=== PATIENT | female | born 1975 | race Caucasian/White ===

== ENCOUNTER 2017-11-04 13:11 | Observation (INO) | payer SELFPAY ==
[2017-11-04] MEDS ORDERED: NA CHLORIDE 0.9% 1,000 ML ONE (14:43)
[2017-11-04] MEDS ORDERED: ONDANSETRON 4 MG/2 ML VIAL ONE (14:43)
[2017-11-04] MEDS ORDERED: MORPHINE 4 MG/ML SYR ONE (14:43)
[2017-11-04 14:52] LABS: Absolute Monocytes 0.4 K/uL (0.1-1.3); Absolute Neutrophil 9.3 K/uL (1.8-8.0); Basophils % 0.3 % (0-1.3); Eosinophils % 0.8 % (0-4.4); Hematocrit 40.7 % (36.0-45.0); MCV 82.7 fL (80-100); RBC Red Blood Cell Count 4.92 M/uL (3.86-4.86)
[2017-11-04 15:03] LABS: Bicarbonate 27 mEq/L (21-31); Glucose Level 104 mg/dL (65-120); Lipase 19 U/L (22-51); Potassium 3.8 mEq/L (3.6-5.0); Sodium Level 139 mEq/L (135-145)
[2017-11-04 15:09] LABS: ALT/SGPT 14 IU/L (10-60); AST/SGOT 18 IU/L (10-42); Alkaline Phosphatase 58 IU/L (42-121); Amylase Level 43 U/L (28-100); BUN Blood Urea Nitrogen 8 mg/dL (6-20); Bilirubin Direct 0.1 mg/dL (0-0.2); Bilirubin Total 0.6 mg/dL (0.3-1.2); Protein, Total 7.7 g/dL (6.0-8.3)
[2017-11-04 15:29] LABS: Blood Morphology Comment NOT SEEN (NOT SEEN); Platelet Estimate ADEQ; Urine White Blood Cell Casts OK
--- NOTE | 2017-11-04 15:45 | RAD REPORT ---
EXAM DESCRIPTION: US - Abdomen Exam Limited - 11/04/2017 3:37 pm CLINICAL HISTORY: Abdominal pain. COMPARISON: None. FINDINGS: The gallbladder demonstrates multiple shadowing gallstones. Gallbladder wall is upper limi t of normal measuring 4-5 mm. The common bile duct is normal measuring 6 mm. The liver demonstrates no findings of intrahepatic biliary dilatation. IMPRESSION: Cholelithiasis is noted with upper limit of normal gallbladder wall measuring 4-5 mm. A cute cholecystitis is low likelihood, however correlation with HIDA scan may be considered if clinica l symptomology persists or progresses.
[2017-11-04 15:54] LABS: Urine Bacteria <20 /HPF (<20); Urine Culture Reflex Order NOT NEEDED
[2017-11-04 16:22] LABS: Urine Blood 2+ (NEG); Urine Glucose NEGATIVE (NEG); Urine Protein 2+ (NEG); Urine Specific Gravity 1.025 (1.005-1.030)
--- NOTE | 2017-11-04 16:26 | EDPHYS ---
Physician Documentation [facility] Name: Jennifer Rodarte Age: 42 yrs Sex: Female : 1975 Arrival Date: 11/04/2017 Time: 13:13 Bed 19 Private MD: ED Physician Bradley Shipley HPI: 11/04 14:23 This 42 yrs old Female presents to ER via Ambulatory with complaints of rh1 Abdominal Pain, Vomiting. 14:23 The patient presents with abdominal pain in the epigastric area, in the upper abdomen. rh1 Onset: The symptoms/episode began/occurred this morning, at 04:00. The symptoms do not radiate. Associated signs and symptoms: Pertinent positives: nausea, vomiting, Pertinent negatives: chest pain, diarrhea, dysuria, fever, shortness of breath. The symptoms are described as constant, sharp. Modifying factors: The symptoms are alleviated by nothing, the symptoms are aggravated by nothing. Severity of pain: At its worst the pain was moderate in the emergency department the pain is unchanged. The patient has not experienced similar symptoms in the past. The patient has not recently seen a physician. Pt. reports began with N/V this am at 0400, with upper abdominal pain. Reports emesis continued throughout the morning, has not been able to keep anything down. She had pizza last night for dinner. Denies any sick contacts, no fever/chills, diarrhea, chest pain, SOB.. 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 - Social history:: Smoking status: Patient/guardian denies using tobacco. ROS: 14:23 Constitutional: Negative for fever, chills rh1 14:23 Cardiovascular: Negative for chest pain, palpitations. 14:23 Respiratory: Negative for cough, shortness of breath, wheezing. 14:23 Abdomen/GI: Positive for abdominal pain, nausea and vomiting, Negative for diarrhea, constipation. 14:23 Back: Negative for decreased range of motion, pain at rest, pain with movement, radiated pain. 14:23 : Negative for urinary symptoms, small amounts. 14:23 Neuro: Negative for altered mental status, dizziness. 14:23 All other systems are negative. Exam: 14:23 Constitutional: This is a well developed, well nourished patient who is awake, alert, rh1 and in no acute distress. Head/Face: Normocephalic, atraumatic. Neck: Trachea midline, and no cervical lymphadenopathy. Supple, full range of motion without nuchal rigidity. No Meningismus. Chest/axilla: Normal chest wall appearance and motion. Nontender with no deformity. No lesions are appreciated. Cardiovascular: Regular rate and rhythm with a normal S1 and S2. No gallops, murmurs, or rubs. No JVD. No pulse deficits. Respiratory: Lungs have equal breath sounds bilaterally, clear to auscultation. No rales, rhonchi or wheezes noted. No increased work of breathing. 14:23 Back: No spinal tenderness. No costovertebral tenderness. Full range of motion. Skin: Warm, dry with normal turgor. Normal color with no rashes, no lesions, and no evidence of cellulitis. 14:23 Abdomen/GI: Inspection: abdomen appears normal, bruising, is not seen, distension, is not seen, Bowel sounds: normal, in all quadrants, active, all quadrants, Palpation: soft, in all quadrants, moderate abdominal tenderness, in the epigastric area and right upper quadrant, rebound tenderness, is not appreciated, involuntary guarding, is not appreciated, Indicators: McBurney's point is not tender, Coffman's sign is positive, Rovsing's sign is negative, Liver: no appreciated palpable abnormalities. 14:23 Neuro: Orientation: is normal, to person, place \T\ time. Mentation: is normal, lucid, able to follow commands, Motor: is normal, moves all fours, Sensation: is normal, no obvious gross deficits, Gait: is steady, at a normal pace, without difficulty. Vital Signs: 13:26 BP 129 / 94; Pulse 78; Resp 17; Temp 98.7; Pulse Ox 97% on R/A; Weight 99.79 kg; Height aj 5 ft. 9 in. (175.26 cm); Pain 4/10; 15:00 BP 124 / 82; Pulse 65; Resp 18; Pulse Ox 100% on R/A; rb1 16:00 BP 129 / 105; Pulse 69; Resp 17; Pulse Ox 100% ; rb1 17:00 BP 128 / 72; Pulse 57; Resp 17; Pulse Ox 98% on R/A; rb1 18:00 BP 120 / 75; Pulse 61; Resp 16; Pulse Ox 99% ; rb1 13:26 Body Mass Index 32.49 (99.79 kg, 175.26 cm) aj MDM: 14:[address] [facility] 16:08 Physician consultation: Leonardo Zheng MD was called at 16:08, was contacted at 16:09, [facility] regarding consult, patient's condition. 16:22 ED course: pt. vomiting water after po challenge. rh1 16:22 Data reviewed: vital signs, nurses notes, lab test result(s), radiologic studies, [facility] ultrasound, and as a result, I will admit patient. Data interpreted: Pulse oximetry: on room air is 97 %. Interpretation: normal. Counseling: I had a detailed discussion with the patient and/or guardian regarding: the historical points, exam findings, and any diagnostic results supporting the discharge/admit diagnosis, lab results, radiology results, the need for further work-up and treatment in the hospital. 16:30 Physician consultation: DR Mitchell was called at 16:31, was contacted at 16:31, regarding [facility] admission, and will see patient. 11/04 14:27 Order name: Amylase, Serum; Complete Time: 15:11 [facility] 11/04 14:27 Order name: Basic Metabolic Panel; Complete Time: 15:11 [facility] 11/04 14:27 Order name: CBC with Diff; Complete Time: 15:35 [facility] 11/04 14:27 Order name: Creatinine for Radiology; Complete Time: 15:04 11/04 14:27 Order name: Hepatic Function; Complete Time: 15:11 [facility] 11/04 14:27 Order name: Lipase; Complete Time: 15:11 [facility] 11/04 14:27 Order name: Urine Microscopic Only; Complete Time: 15:55 [facility] 11/04 14:27 Order name: US Abdomen Limited; Complete Time: 15:46 [facility] 11/04 14:54 Order name: CBC Smear Scan; Complete Time: 15:35 EDMS 11/04 15:03 Order name: Urine Dipstick--Ancillary (enter results); Complete Time: 16:26 eb 11/04 15:03 Order name: Urine --Ancillary (enter results); Complete Time: 16:26 11/04 14:27 Order name: Urine Test (obtain specimen); Complete Time: 14:55 1 11/04 14:27 Order name: IV Saline Lock; Complete Time: 14:38 1 11/04 14:27 Order name: Labs collected and sent; Complete Time: 14:38 1 11/04 14:27 Order name: Urine Dipstick-Ancillary (obtain specimen); Complete Time: 14:55 1 11/04 15:56 Order name: PO challenge; Complete Time: 16:24 rh1 Administered Medications: 14:53 Drug: Zofran 4 mg Route: IVP; Site: left antecubital; rb1 14:55 Drug: morphine 4 mg Route: IVP; Site: left antecubital; rb1 15:15 Follow up: Response: No adverse reaction; Pain is decreased rb1 15:06 Drug: NS 0.9% 1000 ml Route: IV; Rate: 1 bolus; Site: left antecubital; rb1 16:12 Follow up: IV Status: Completed infusion rb1 15:08 Not Given (provider changed order): morphine 4 mg IM once rb1 16:35 Drug: Phenergan 12.5 mg Route: IVP; Site: left antecubital; rb1 16:40 Drug: Mefoxin 1 grams Route: IVPB; Infused Over: 30 mins; Site: left antecubital; rb1 16:45 Drug: Flagyl 500 mg Volume: 100 ml; Route: IVPB; Rate: 200 ml/hr; Infused Over: 30 rb1 mins; Site: left antecubital; Disposition: 18:47 Co-signature as Attending Physician, Bradley Shipley MD. rn Disposition: 11/04/17 16:25 Hospitalization ordered by Ash Harvey for Observation. Preliminary diagnosis are Cholelithiasis, Nausea and vomiting. - Bed requested for Telemetry/MedSurg (observation). - Status is Observation. rb1 - Condition is Stable. - Problem is new. - Symptoms are unchanged. UTI on Admission? No Signatures: Dispatcher [employer] EDJada Yu RN RN aj Nieto, Roman, MD MD rn Jones, Rachel, SHANK TAPPER SHANK TAPPER 1 Carline Tran RN RN rb1 Isis Garcia Corrections: (The following items were deleted from the chart) 16:28 16:25 Hospitalization Ordered by [facility] DO for Observation. Preliminary eb diagnosis is Cholelithiasis; Nausea and vomiting. Bed requested for Telemetry/MedSurg (observation). Status is Observation. Condition is Stable. Problem is new. Symptoms are unchanged. UTI on Admission? No. rh1 17:14 16:28 11/04/2017 16:25 Hospitalization Ordered by [facility] for Observation. eb Preliminary diagnosis is Cholelithiasis; Nausea and vomiting. Bed requested for Telemetry/MedSurg (observation). Status is Observation. Condition is Stable. Problem is new. Symptoms are unchanged. UTI on Admission? No. eb 17:35 17:14 11/04/2017 16:25 Hospitalization Ordered by [facility] for Observation. eb Preliminary diagnosis is Cholelithiasis; Nausea and vomiting. Bed requested for Telemetry/MedSurg (observation). Status is Observation. Condition is Stable. Problem is new. Symptoms are unchanged. UTI on Admission? No. eb 18:44 17:35 11/04/2017 16:25 Hospitalization Ordered by [facility] for Observation. rb1 Preliminary diagnosis is Cholelithiasis; Nausea and vomiting. Bed requested for Telemetry/MedSurg (observation). Status is Observation. Condition is Stable. Problem is new. Symptoms are unchanged. UTI on Admission? No. eb
--- NOTE | 2017-11-04 16:26 | ER ---
Nurse's Notes [facility] Name: Jennifer Rodarte Age: 42 yrs Sex: Female : 1975 Arrival Date: 11/04/2017 Time: 13:13 Bed 19 Private MD: Diagnosis: Cholelithiasis;Nausea and vomiting Presentation: 11/04 13:25 Presenting complaint: Patient states: RUQ abdominal pain and nausea since 0400 this AM. aj Patient reports eating pizza last night. Transition of care: patient was not received from another setting of care. Onset of symptoms was November 04, 2017. Initial Sepsis Screen: Does the patient meet any 2 criteria? No. Patient's initial sepsis screen is negative. Does the patient have a suspected source of infection? No. Patient's initial sepsis screen is negative. Care prior to arrival: None. 13:25 Method Of Arrival: Ambulatory aj 13:25 Acuity: MIHIR 3 aj Triage Assessment: 13:26 General: Appears in no apparent distress. uncomfortable, Behavior is calm, cooperative, aj appropriate for age. Pain: Complains of pain in right upper quadrant. Neuro: Level of Consciousness is awake, alert, obeys commands, Oriented to person, place, time, situation, Appropriate for age. Respiratory: Airway is patent Trachea midline Respiratory effort is even, unlabored, Respiratory pattern is regular, symmetrical. GI: Reports upper abdominal pain, nausea, vomiting. Derm: Skin is intact, is healthy with good turgor, Skin is pink, warm \T\ dry. normal. 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 - Social history:: Smoking status: Patient/guardian denies using tobacco. Screenin:25 Abuse screen: Denies threats or abuse. Nutritional screening: No deficits noted. rb1 Tuberculosis screening: No symptoms or risk factors identified. Fall Risk None identified. Assessment: 14:25 General: Appears uncomfortable, Behavior is calm, cooperative, Reports fever for. Pain: rb1 Complains of pain in epigastric area and right upper quadrant Pain currently is 9 out of 10 on a pain scale. Neuro: Level of Consciousness is awake, alert, obeys commands, Oriented to person, place, time, situation. Cardiovascular: Capillary refill < 3 seconds is brisk in bilateral fingers. Respiratory: Airway is patent Respiratory effort is even, unlabored, Respiratory pattern is regular, symmetrical. GI: Bowel sounds present X 4 quads. Abd is soft Abdomen is tender to palpation in epigastric area and right upper quadrant. : No signs and/or symptoms were reported regarding the genitourinary system. Derm: Skin is pink, warm \T\ dry. 15:18 Reassessment: Patient appears in no apparent distress at this time. No changes from rb1 previously documented assessment. 16:15 Reassessment: Patient appears in no apparent distress at this time. Patient and/or rb1 family updated on plan of care and expected duration. Pain level reassessed. Patient is alert, oriented x 3, equal unlabored respirations, skin warm/dry/pink. Family at bedside. 16:45 Reassessment: Dr. Mitchell is at bedside. rb1 17:15 Reassessment: Patient appears in no apparent distress at this time. No changes from rb1 previously documented assessment. 18:00 Reassessment: Patient appears in no apparent distress at this time. Patient and/or rb1 family updated on plan of care and expected duration. Pain level reassessed. Patient is alert, oriented x 3, equal unlabored respirations, skin warm/dry/pink. at bedside. 18:10 Reassessment: Called report to Jyothi Du RN. Information from the SBAR was given. All rb1 questions asked and answered. Vital Signs: 13:26 BP 129 / 94; Pulse 78; Resp 17; Temp 98.7; Pulse Ox 97% on R/A; Weight 99.79 kg; Height aj 5 ft. 9 in. (175.26 cm); Pain 4/10; 15:00 BP 124 / 82; Pulse 65; Resp 18; Pulse Ox 100% on R/A; rb1 16:00 BP 129 / 105; Pulse 69; Resp 17; Pulse Ox 100% ; rb1 17:00 BP 128 / 72; Pulse 57; Resp 17; Pulse Ox 98% on R/A; rb1 18:00 BP 120 / 75; Pulse 61; Resp 16; Pulse Ox 99% ; rb1 13:26 Body Mass Index 32.49 (99.79 kg, 175.26 cm) ED Course: 13:13 Patient arrived in ED. sb2 13:26 Triage completed. aj 13:26 Arm band placed on right wrist. Patient placed in waiting room, Patient notified of aj wait time. 14:22 Nara Hairston NP is PHCP. rh1 14:22 Bradley Shipley MD is Attending Physician. rh1 14:25 Patient has correct armband on for positive identification. Placed in gown. Bed in low rb1 position. Call light in reach. Side rails up X 1. Pulse ox on. NIBP on. Warm blanket given. 14:26 Carline Tran, RN is Primary Nurse. rb1 14:41 Initial lab(s) drawn, by me, sent to lab. Inserted saline lock: 20 gauge in left dh3 antecubital area, using aseptic technique. Blood collected. 14:54 Urine collected: clean catch specimen, clear. dh3 15:37 US Abdomen Limited In Process Unspecified. EDMS 16:24 Ash Harvey DO is Hospitalizing Provider. rh1 18:30 No provider procedures requiring assistance completed. Patient admitted, IV remains in rb1 place. Administered Medications: 14:53 Drug: Zofran 4 mg Route: IVP; Site: left antecubital; rb1 14:55 Drug: morphine 4 mg Route: IVP; Site: left antecubital; rb1 15:15 Follow up: Response: No adverse reaction; Pain is decreased rb1 15:06 Drug: NS 0.9% 1000 ml Route: IV; Rate: 1 bolus; Site: left antecubital; rb1 16:12 Follow up: IV Status: Completed infusion rb1 15:08 Not Given (provider changed order): morphine 4 mg IM once rb1 16:35 Drug: Phenergan 12.5 mg Route: IVP; Site: left antecubital; rb1 16:40 Drug: Mefoxin 1 grams Route: IVPB; Infused Over: 30 mins; Site: left antecubital; rb1 16:45 Drug: Flagyl 500 mg Volume: 100 ml; Route: IVPB; Rate: 200 ml/hr; Infused Over: 30 rb1 mins; Site: left antecubital; Outcome: 16:25 Decision to Hospitalize by Provider. rh1 18:30 Patient left the ED. rb1 18:30 Admitted to Tele accompanied by tech, family with patient, via wheelchair, room 404, rb1 with chart, Report called to Jyothi Du RN 18:30 Condition: stable 18:30 Instructed on the need for admit. Signatures: Dispatcher [employer] Jada Velasquez RN RN aj Jones, Rachel, HAND DEICER ELEMENT WINDER HAND DEICER ELEMENT WINDER rh1 Carline Tran RN RN rb1 Judith Manzo dh3 Caryn Zimmerman sb2 Corrections: (The following items were deleted from the chart) 13:28 13:26 Arm band placed on right wrist. Patient placed in an exam room, bernard wagner 16:49 14:45 Flagyl 500 mg 100 ml IVPB at 200 ml/hr in left antecubital over 30 mins 100 ml [id number] 18:47 18:44 Patient left the ED. rb1 rb1
[2017-11-04] MEDS ORDERED: CEFOXITIN/SWI 1gm 1 GM/10 ML SYR ONE (16:34)
[2017-11-04] MEDS ORDERED: PROMETHAZINE 25 MG/ML VIAL ONE (16:34)
[2017-11-04] MEDS ORDERED: METRONIDAZOLE 500mg IVPB 500 MG/100 ML BAG IV ONE (16:35)
--- NOTE | 2017-11-04 17:19 | P.HP ---
Certification for Inpatient Patient admitted to: Observation With expected LOS: <2 Midnights Patient will require the following post-hospital care: None Practitioner: I am a practitioner with admitting privileges, knowledge of patient current condition, hospital course, and medical plan of care. Services: Services provided to patient in accordance with Admission requirements found in Title 42 Section 412.3 of the Code of Federal Regulations Patient History Date of Service: 11/04/17 Reason for admission: abdominal pain History of Present Illness: 42 year old female with no known past medical history presents with one day of right upper quadrant abdominal pain.Patient describes the pain as sharp, constant, non radiating. No known aggravating or relieving factor.Pain said to be associated with nausea and intractable vomiting.She denies any fever or chills. No urinary symptoms.she had a one time episode of loose watery stool yesterday otherwise no other complaints. - Social History Alcohol use: No CD- Drugs: No Caffeine use: No Place of Residence: Home Review of Systems 10-point ROS is otherwise unremarkable Physical Examination - Physical Exam General: Alert, In no apparent distress, Oriented x3, Cooperative HEENT: Atraumatic, Normocephalic, PERRLA Neck: Supple, JVD not distended, No Thyromegaly, No LAD Respiratory: Clear to auscultation bilaterally, Normal air movement Cardiovascular: No edema, Normal pulses, Regular rate/rhythm, No gallops, No rubs, No murmurs Gastrointestinal: Normal bowel sounds, Soft and benign, Non-distended, No ascites, No tenderness, No masses, No rebound, No guarding, Other (neg murphys) Musculoskeletal: No clubbing, No swelling, No contractures, No erythema, No tenderness, No warmth Neurological: Normal speech, Normal tone, Sensation intact, Cranial nerves 3-12 intact - Studies Laboratory Data (last 24 hrs) 11/04/17 14:37: Creatinine 0.63 11/04/17 14:37: WBC 10.8, Hgb 13.3, Hct 40.7, Plt Count 236 11/04/17 14:37: Sodium 139, Potassium 3.8, BUN 8, Creatinine 0.66, Glucose 104, Total Bilirubin 0.6, AST 18, ALT 14, Alkaline Phosphatase 58, Amylase 43, Lipase 19 L Assessment and Plan - Problems (Diagnosis) (1) Cholelithiases Current Visit: Yes Status: Acute Plan: symptomatic no evidence of cholecystitis. NPO IV hydration anti emetics analgesics Dr Zheng consulted will discuss with him about possible HIDA scan Qualifiers: Cholecystitis presence: without cholecystitis Biliary obstruction: without biliary obstruction - Advance Directives Does patient have a Living Will: No Does patient have a Durable POA for Healthcare: No Physician Review: Patient Assessed, Agree with Above Assessment and Plan Time Spent Managing Pts Care (In Minutes): 35
[2017-11-04] MEDS ORDERED: ONDANSETRON 4 MG/2 ML VIAL IV PRN (18:30)
[2017-11-04] MEDS ORDERED: ACETAMINOPHEN 500 MG TAB PO PRN (18:30)
[2017-11-04] MEDS ORDERED: Morphine 2 MG/2 ML SYR IV PRN (18:30)
[2017-11-04] MEDS: NA CHLORIDE 0.9% 1,000 ML IV SCH (18:54)
--- NOTE | 2017-11-04 20:13 | CON ---
Date of Consultation: 11/04/2017 Diagnosis: Right upper quadrant pain, acute cholecystitis, symptomatic cholelithiasis. Indications: This is the case of a female, who came to us with epigastric right upper quadrant pain radiating to the back associated with nausea and vomiting since last night. The patient ate some piz za before this happened. She denies any dysuria, hematuria, hematochezia, or melena. Denies any rec ent recent traveling out of the country. Denies any family member sick at home. The patient denies any prior episode. Review of Systems: Consultation. Denies any fevers or chills. Respiratory: Denies any shortness of breath. Gastrointestinal: As above. Genitourinary: Denies any dysuria, hematuria. Past Medical History: None. Allergies: NONE. Past Surgical History: Tubal ligation. Medications: None. She does not smoke. She does not drink alcohol. Physical Examination: General: The patient is awake and alert. HEENT: Pupils are equal and reactive, anicteric. Neck: Supple. Chest: Clear. Heart: S1, S2. ABDOMEN: Soft and depressible. There is epigastric right upper quadrant tenderness with Coffman sign positive. Breasts, Rectal, Pelvic: Deferred. Extremities: Good capillary refill. Laboratory Data: Blood work shows a WBC count of 10.8, hemoglobin of 13.3, and platelets of 236 with a potassium 3.8, lipase 19, amylase 43. Ultrasound of the abdomen and pelvis, interpreted by Dr. Reid as cholelithiasis and acute cholecystitis. Assessment: This is a 42-year-old patient with acute cholecystitis, symptomatic cholelithiasis. The benefits, alternatives, and risks of laparoscopic, possible open cholecystectomy fully explained to the patient, which include but are not limited to infection, bleeding, damage to adjacent structures, anesthesia complication, OH, and even . She also understands this may not relieve any symptoms , she might need more than one surgical intervention. She did try to see if she can eat something, t o see if she can do this electively, but she cannot even tolerate any diet, so we get her admitted to the hospital. IV antibiotics, n.p.o., and proceed with surgery. ELODIA/RADHA Voice ID: [id number] Report ID: [id number]
[2017-11-05 00:55] VITALS: BMI 32.9
[2017-11-05] MEDS: NA CHLORIDE 0.9% 1,000 ML IV SCH ×3 (04:30→13:02)
[2017-11-05 05:42] LABS: Absolute Lymphocytes (CBC) 1.4 K/uL (0.7-4.9); Absolute Monocytes 0.5 K/uL (0.1-1.3); Absolute Neutrophil 4.6 K/uL (1.8-8.0); Basophils % 0.4 % (0-1.3); Eosinophils % 4.4 % (0-4.4); Hematocrit 36.1 % (36.0-45.0); Lymphocytes % 19.9 % (15.3-44.8); MCH 26.9 pg (27.0-35.0); MPV 8.9 fL (7.6-11.3); Monocytes % 7.7 % (3.3-12.3); RBC Red Blood Cell Count 4.35 M/uL (3.86-4.86)
[2017-11-05 05:48] LABS: ALT/SGPT 12 IU/L (10-60); AST/SGOT 13 IU/L (10-42); Albumin 3.2 g/dL (3.2-5.5); Alkaline Phosphatase 50 IU/L (42-121); BUN Blood Urea Nitrogen 5 mg/dL (6-20); Bicarbonate 25 mEq/L (21-31); Bilirubin Total 0.7 mg/dL (0.3-1.2); Glucose Level 104 mg/dL (65-120); Potassium 3.2 mEq/L (3.6-5.0); Protein, Total 6.2 g/dL (6.0-8.3); Sodium Level 139 mEq/L (135-145)
[2017-11-05] MEDS ORDERED: MIDAZOLAM HCL 2 MG/2 ML INJ ONE (10:00)
[2017-11-05] MEDS ORDERED: ROCURONIUM 50 MG/5 ML VIAL IV ONE (10:00)
[2017-11-05] MEDS ORDERED: FENTANYL CITR 250 MCG/5 ML ONE (10:00)
[2017-11-05] MEDS ORDERED: LIDOCAINE 2% MPF 5 ML VIAL ONE (10:00)
[2017-11-05] MEDS ORDERED: PROPOFOL 200 MG/20 ML VIAL IV ONE (10:00)
[2017-11-05] MEDS ORDERED: CEFOXITIN/SWI 1gm 1 GM/10 ML SYR ONE (10:03)
[2017-11-05] MEDS ORDERED: KETOROLAC 30 MG/ML INJ ONE (10:50)
[2017-11-05] MEDS: KCL 20 MEQ/100 mL IVPB 20 MEQ/100 ML BAG IV SCH ×2 (11:00→13:01)
[2017-11-05] MEDS ORDERED: Mastisol Adhesive Liq ONE (11:03)
--- NOTE | 2017-11-05 11:05 | P.BOP ---
Preoperative diagnosis: acute cholecystitis, symptomatic cholelithiasis Postoperative diagnosis: same plus incacerated umbilical hernia Primary procedure: 1. Laparoscopic cholecystectomy Secondary procedure: 2. Open repair of incacerated umbilical hernia Barrel Inspector Tight: Sonja Goodman) Estimated blood loss: <10cc Specimen: hernia sac, gallbladder Findings: as above Anesthesia: General Transferred to: Recovery Room Condition: Good
[2017-11-05] MEDS ORDERED: HYDROCODONE/APAP 7.5/325 MG TAB PO PRN (11:26)
[2017-11-05] MEDS ORDERED: MEPERIDINE HCL 25 MG/0.5 ML ONE ×2 (11:30→11:39)
[2017-11-05] MEDS ORDERED: ONDANSETRON 4 MG/2 ML VIAL ONE (11:31)
[2017-11-05 11:51] VITALS: O2SAT 94
[2017-11-05] MEDS ORDERED: CEFOXITIN SODIUM 1 GM/VIAL IVPB SCH (12:00)
[2017-11-05] MEDS: CEFOXITIN/SWI 1gm 1 GM/10 ML SYR IV SCH ×2 (12:00→16:23)
--- NOTE | 2017-11-05 12:05 | P.PN ---
Subjective Date of Service: 11/05/17 Primary Care Provider: None Chief Complaint: abdominal pain Subjective: Improving (Abdominal pain improved. No significant nausea vomiting this morning. Patient NPO for surgery.) Physical Examination - Vital Signs Temperature: 98.6 F Blood Pressure: 110/68 Pulse: 66 Respirations: 16 Pulse Ox (%): 94 - Physical Exam General: Alert, In no apparent distress, Oriented x3, Cooperative HEENT: Atraumatic Neck: Supple Respiratory: Clear to auscultation bilaterally, Normal air movement Cardiovascular: Regular rate/rhythm Gastrointestinal: Normal bowel sounds, Soft and benign, Non-distended, No tenderness, No masses, No rebound, No guarding Musculoskeletal: No tenderness, No warmth Integumentary: No erythema, No warmth, No cyanosis Neurological: Normal speech, Normal strength at 5/5 x4 extr, Normal tone, Normal affect Lymphatics: No axilla or inguinal lymphadenopathy - Studies Laboratory Data (last 24 hrs) 11/04/17 14:37: Creatinine 0.63 11/04/17 14:37: WBC 10.8, Hgb 13.3, Hct 40.7, Plt Count 236 11/04/17 14:37: Sodium 139, Potassium 3.8, BUN 8, Creatinine 0.66, Glucose 104, Total Bilirubin 0.6, AST 18, ALT 14, Alkaline Phosphatase 58, Amylase 43, Lipase 19 L Medications List Reviewed: Yes Assessment & Plan - Problems (Diagnosis) (1) Cholecystitis with cholelithiasis Current Visit: Yes Status: Acute Plan: Patient be taken to the OR today. Patient to have laparoscopic cholecystectomy. Brief operative note reviewed. Patient had laparoscopic cholecystectomy with repair of incarcerated umbilical hernia. Anticipate discharge likely in the next day. Will discuss with surgery. Qualifiers: Cholelithiasis location: gallbladder Cholecystitis acuity: acute Biliary obstruction: without biliary obstruction Qualified Code(s): K80.00 - Calculus of gallbladder with acute cholecystitis without obstruction (2) Incarcerated umbilical hernia Current Visit: Yes Status: Acute Plan: Patient had repair of umbilical hernia. Will discuss with surgery. (3) Obesity Current Visit: Yes Status: Chronic Plan: Will address lifestyle modification education. Qualifiers: Obesity type: due to excess calories Obesity classification: adult class 1 (BMI 30 - 34.9) Serious obesity comorbidity presence: with serious comorbidity Body mass index: BMI 32.0-32.9 Qualified Code(s): E66.09 - Other obesity due to excess calories; Z68.32 - Body mass index (BMI) 32.0-32.9, adult (4) Hypokalemia Current Visit: Yes Status: Acute Plan: Will monitor and replace appropriately. Replacement protocol in place. (5) Hypomagnesemia Current Visit: Yes Status: Acute Plan: Will monitor and replace appropriately. Replacement protocol in place. Discharge Plan: Home Plan to discharge in: 24 Hours Time Spent Managing Pts Care (In Minutes): 55
[2017-11-05 16:53] VITALS: BP 118/63; TEMP 99.2
--- NOTE | 2017-11-05 18:18 | P.DS ---
Admission Date: 11/04/17 Discharge Date: 11/05/17 Primary Care Provider: None Disposition: ROUTINE DISCHARGE Discharge Condition: GOOD Reason for Admission: abdominal pain Consultations: Surgery-Dr. Zheng Procedures: Surgery: Laparoscopic cholecystectomy with open repair of incarcerated umbilical hernia - Problems (1) Cholecystitis with cholelithiasis Current Visit: Yes Status: Acute Qualifiers: Cholelithiasis location: gallbladder Cholecystitis acuity: acute Biliary obstruction: without biliary obstruction Qualified Code(s): K80.00 - Calculus of gallbladder with acute cholecystitis without obstruction (2) Incarcerated umbilical hernia Current Visit: Yes Status: Acute (3) Obesity Current Visit: Yes Status: Chronic Qualifiers: Obesity type: due to excess calories Obesity classification: adult class 1 (BMI 30 - 34.9) Serious obesity comorbidity presence: with serious comorbidity Body mass index: BMI 32.0-32.9 Qualified Code(s): E66.09 - Other obesity due to excess calories; Z68.32 - Body mass index (BMI) 32.0-32.9, adult (4) Hypokalemia Current Visit: Yes Status: Acute (5) Hypomagnesemia Current Visit: Yes Status: Acute Brief History of Present Illness: 42-year-old female presented urgency room with abdominal pain. She is found to have cholecystitis with cholelithiasis. The patient was admitted for evaluation and treatment. Hospital Course: During her stay the patient was evaluated by surgery. Surgery recommended laparoscopic cholecystectomy. Upon surgery the patient had laparoscopic cholecystectomy. Patient was found to have incarcerated umbilical hernia. Open repair of the hernia was done. Patient tolerated procedure well. At discharge patient will continue with Bactrim and Tylenol with codeine as prescribed by surgery. She is to continue with post operative recommendations by surgery. Patient will need to follow up with surgery in 7 to 10 days to monitor her her progress. No heavy lifting, pushing or pulling is recommended at this time. Patient will need to be cleared to go back to work by surgery. Vital Signs/Physical Exam: Temp Pulse Resp BP Pulse Ox 99.2 F 76 18 118/63 100 11/05/17 16:00 11/05/17 16:00 11/05/17 16:00 11/05/17 16:00 11/05/17 16:00 General: Alert, In no apparent distress, Oriented x3, Cooperative HEENT: Atraumatic Neck: Supple Respiratory: Clear to auscultation bilaterally, Normal air movement Cardiovascular: Normal pulses, Regular rate/rhythm Gastrointestinal: Normal bowel sounds, Soft and benign, Non-distended, No tenderness, No masses, No rebound, No guarding Musculoskeletal: No erythema, No tenderness, No warmth Integumentary: No tenderness/swelling, No erythema, No warmth, No cyanosis Neurological: Normal speech, Normal strength at 5/5 x4 extr, Normal tone, Normal affect Lymphatics: No axilla or inguinal lymphadenopathy Laboratory Data at Discharge: WBC 6.8 K/uL (4.3-10.9) D 11/05/17 04:57 Hgb 11.7 g/dL (12.0-15.0) L 11/05/17 04:57 Hct 36.1 % (36.0-45.0) 11/05/17 04:57 Plt Count 170 K/uL (152-406) D 11/05/17 04:57 Sodium 139 mEq/L (135-145) 11/05/17 04:57 Potassium 3.2 mEq/L (3.6-5.0) L 11/05/17 04:57 BUN 5 mg/dL (6-20) L 11/05/17 04:57 Creatinine 0.69 mg/dL (0.44-1.00) 11/05/17 04:57 Glucose 104 mg/dL (65-120) 11/05/17 04:57 Magnesium 1.6 mg/dL (1.8-2.5) L 11/05/17 04:57 Total Bilirubin 0.7 mg/dL (0.3-1.2) 11/05/17 04:57 AST 13 IU/L (10-42) 11/05/17 04:57 ALT 12 IU/L (10-60) 11/05/17 04:57 Alkaline Phosphatase 50 IU/L (42-121) 11/05/17 04:57 Amylase 43 U/L (28-100) 11/04/17 14:37 Lipase 19 U/L (22-51) L 11/04/17 14:37 Home Medications: Codeine/APAP [Tylenol W/Codeine #3 tab] 1 tab PO Q4HP PRN #30 tab 11/05/17 Sulfamethoxazole/Trimethoprim [Bactrim Ds Tablet] 1 each PO BID #10 tablet 11/05 New Medications: Codeine/APAP [Tylenol W/Codeine #3 tab] 1 tab PO Q4HP PRN #30 tab PRN Reason: Pain Sulfamethoxazole/Trimethoprim [Bactrim Ds Tablet] 1 each PO BID #10 tablet Patient Discharge Instructions: keep area dry for 48h then may shower. Keep sterile strips intact. Diet: AHA Activity: No lifting more than 10 lbs Followup: Leonardo Zheng MD [ACTIVE - CAN ADMIT] - 1 Week (call to schedule appointment) Time spent managing pt's care (in minutes): 55
--- NOTE | 2017-11-05 21:13 | OP ---
Date of Procedure: 11/05/2017 Surgeon: Leonardo Zheng MD Reel Slitter: FRANCISCO Shepard Preoperative Diagnosis: Acute cholecystitis and symptomatic cholelithiasis. Postoperative Diagnoses: Acute cholecystitis and symptomatic cholelithiasis plus incarcerated umbili rosita hernia. Procedures: 1.Laparoscopic cholecystectomy. 2.Open repair of an incarcerated umbilical hernia. Estimated Blood Loss: Less than 10 cc. Specimen: Gallbladder and hernia sac. Anesthesia: General plus local. Indications: This is the case of a female, who came to us with above diagnosis. Fully explained the benefits, alternatives, and risks of laparoscopic, possible open cholecystectomy, which include but are not limited to infection, bleeding, damage to adjacent structures, anesthesia complication, recur rence, right upper quadrant pain, DE, or even . She also understands this may not relieve any o f her symptoms. She might need more than one surgical intervention. She understood. Signed the con sent. Description Of Procedure: The patient was brought to the operating room, placed in supine position. Anesthesia was done without complication. Abdominal area was prepped and draped in a sterile fashio n. Marcaine 0.5% injected for local anesthetic, followed by sharp incision of skin in the infraumbil ical region. Immediately, we noticed the patient to have an incarcerated umbilical hernia. We remov ed the hernia sac, opened it, and noticed incarcerated omentum that was carefully reduced into the ab dominal cavity after fully inspecting and making sure there was no bleeding. The hernia sac was julia mele. The fascial edges were cleaned. We extended incision to accommodate a Sincere trocar. Vicryl # 1 was placed inside the fascia. Sincere trocar was carefully introduced. Pneumoperitoneum was obtain ed. After that I placed 3 more trocars in the right upper quadrant under direct visualization, 5 mm each of them. The appendix was inflamed and thickened, distended. So, we had to use an Endo needle under direct visualization and deflate the gallbladder to be able to be managed. The needle was julia mele under direct visualization. A grasper was placed in the fundus of the gallbladder, another grasp er in the infundibulum, retracted the gallbladder in the inferolateral fashion, exposing the triangle of Calot, and obtaining critical view. The cystic duct and cystic artery were cleared and isolated free circumferentially and a connection between those and the gallbladder was clearly identified. I proceeded to ligate those by using at least 3 clips proximal, 1 clip distal, ligation in middle. Thom e was done with the cystic artery and a small little branch of it. The hepatic arteries and common b ile duct were protected at all times. The gallbladder was removed from liver using Bovie cauterizer and removed from the abdominal cavity using an EndoCatch through the umbilical incision. The area wa s inspected once again. No bile leak. No bleeding. Clips were intact. Gallbladder fossa was intac t. At that moment, I proceeded to remove the trocars under direct vision. Deflated pneumoperitoneum . Closed the fascia with #1 Vicryl, irrigated the subcutaneous incision, closed that with 3-0 chromi c and skin with 3-0 chromic in a subcuticular fashion and Steri-Strips on top. Sponge count and inst rument counts were correct. The patient tolerated the procedure well. The patient was sent to [facility] in stable condition. Postoperative Plan: If she tolerates diet this afternoon and dinner, she may be able to go home. Wi ll follow up in my office in 1 week. Call for appointment [phone]. Keep the area dry for 48 hours, then may shower and keep Steri-Strip intact. Medications: Medications will be Bactrim DS p.o. b.i.d. and Tylenol No. 3 q.4 hours p.r.n. pain. KORY Voice ID: [id number] Report ID: [id number]
== END 2017-11-05 19:20 | disposition home or self-care (01) ==
LOC: ER 13:11 → ERHOLD 16:32 → 4TH 18:15
PROVIDERS: ADMIT Internal Medicine; ATTEND Internal Medicine
PROC: 0WQF0ZZ Repair Abdominal Wall, Open Approach (ICD-10-PCS; 2017-11-05)
PROC: 0FT44ZZ Resection of Gallbladder, Percutaneous Endoscopic Approach (ICD-10-PCS; principal; 2017-11-05 12:00)
DX: K80.00 Calculus of gallbladder with acute cholecystitis without obstruction (principal); K42.0 Umbilical hernia with obstruction, without gangrene; E66.9 Obesity, unspecified; Z68.32 Body mass index [BMI] 32.0-32.9, adult; E87.6 Hypokalemia; E83.42 Hypomagnesemia
CPT/HCPCS: 36415; 76705; 80048; 80053; 80076; 81003; 81015; 81025; 82150; 83690; 83735; 84132; 85025; 88302; 88304; 96361; 96374; 96375; 99285; G0378; J2175; J2250; J2270; J2405; J2550; J7030